=== PATIENT | female | born 1970 | race Caucasian/White ===

== ENCOUNTER 2016-03-14 08:52 | Outpatient (CLI) | payer OTHER | END 2016-03-14 08:53 | disposition home or self-care (01) | DX: Z00.00 Encounter for general adult medical examination without abnormal findings (principal); E55.9 Vitamin D deficiency, unspecified; E78.5 Hyperlipidemia, unspecified ==

== ENCOUNTER 2016-04-13 14:55 | Outpatient (CLI) | payer OTHER | END 2016-04-13 14:56 | disposition home or self-care (01) | DX: N92.0 Excessive and frequent menstruation with regular cycle (principal); R53.83 Other fatigue ==

== ENCOUNTER 2017-11-28 13:22 | Outpatient (CLI) | payer OTHER | END 2017-11-28 13:23 | disposition home or self-care (01) | LOC: LAB.F 13:22 | PROVIDERS: ATTEND Nurse Practitioner Family | DX: R06.02 Shortness of breath (principal) ==

== ENCOUNTER 2017-11-30 08:16 | Outpatient (CLI) | payer OTHER ==
[2017-11-30 09:33] LABS: ALBUMIN 4.1 g/dL (3.2-5.5); ALBUMIN/GLOBULIN RATIO 1.5 (1.0-2.2); BILIRUBIN,TOTAL 1.2 mg/dL (0.2-1.0); CALCIUM 9.3 mg/dL (8.5-10.3); CREATININE 0.7 mg/dL (0.4-1.0); TOTAL PROTEIN 6.9 g/dL (6.7-8.2)
[2017-11-30 09:35] LABS: BASOPHILS % (AUTO) 0.3 %; EOSINOPHILS % (AUTO) 0.7 %; HGB - HEMOGLOBIN 13.9 g/dL (12.0-16.0); LYMPHOCYTES # (AUTO) 1.5 10^3/uL (1.5-3.5); LYMPHOCYTES % (AUTO) 22.6 %; MEAN CORPUSCULAR HEMOGLOBIN 32.5 pg (27.0-31.0); MEAN CORPUSCULAR HGB CONC 34.7 g/dL (32.0-36.0); MEAN CORPUSCULAR VOLUME 93.5 fL (81.0-99.0); MEAN PLATELET VOLUME 11.2 fL (7.9-10.8); MONOCYTES # (AUTO) 0.5 10^3/uL (0.0-1.0); MONOCYTES % (AUTO) 8.1 %; NEUTROPHILS # (AUTO) 4.6 10^3/uL (1.5-6.6); NEUTROPHILS % (AUTO) 68.3 %; PLT - PLATELET COUNT 192 10^3/uL (130-450); RED BLOOD COUNT 4.29 10^6/uL (4.20-5.40); RED CELL DISTRIBUTION WIDTH 12.9 % (12.0-15.0); WHITE BLOOD COUNT 6.7 x10^3/uL (4.8-10.8)
--- NOTE | 2017-11-30 11:04 | XRAY Report ---
Reason: NEW ONSET SHORTNESS OF BREATH, GERD, VIRAL ILLNESS Procedure Date: 11/30/2017 Accession Number: [id number] / [id number] Procedure: XR - Chest 2 View X-Ray CPT Code: 49079 FULL RESULT: EXAM: CHEST RADIOGRAPHY EXAM DATE: 11/30/2017 09:22 AM. CLINICAL HISTORY: Mild chest pain and shortness of breath x5 weeks. COMPARISON: XR CHEST PA AND LAT 10/07/2008 8:08 PM. TECHNIQUE: 2 views. FINDINGS: Lungs/Pleura: Normal volumes. No focal consolidation or evidence of edema. No pleural effusion or pneumothorax. Mediastinum: Normal cardiomediastinal contour. Other: Minimal left convex curvature of the upper thoracic spine. IMPRESSION: No acute cardiopulmonary abnormality. RADIA
== END 2017-11-30 08:17 | disposition home or self-care (01) ==
LOC: DI 08:16
PROVIDERS: ATTEND Nurse Practitioner Family
DX: R06.02 Shortness of breath (principal); I10 Essential (primary) hypertension
CPT/HCPCS: 36415; 71046; 80053; 81599; 85025

== ENCOUNTER 2021-12-14 07:54 | Day surgery (SDC) | payer OTHER ==
[2021-12-14] MEDS ORDERED: LACTATED RINGERS 1,000 ML IV ONE ×3 (08:08→09:58)
[2021-12-14] MEDS ORDERED: PROPOFOL 500 MG/50 ML 500 MG/50 ML VIAL ONE (08:30)
--- NOTE | 2021-12-14 08:52 | ANESTHESIA ---
Pre-Anesthesia VS, & Labs - Diagnosis screening - Procedure colonoscopy Vital Signs: Temp Pulse Resp BP Pulse Ox O2 Flow Rate 36.0 C L 72 17 146/90 H 100 0 12/14/21 08:08 12/14/21 08:08 12/14/21 08:08 12/14/21 08:08 12/14/21 08:08 12/14/21 08:08 Height: 5 ft 8 in Weight (kg): 74 kg Body Mass Index: 24.7 BMI Classification: Normal - NPO >8 hours - Is Patient ?: No Home Medications and Allergies Home Medications: Ambulatory Orders Multivitamin 1 each PO DAILY 12/13/21 Multivitamin 1 each PO DAILY 12/13/21 Allergies/Adverse Reactions: Allergies Allergy/AdvReac Type Severity Reaction Status Date / Time No Known Drug Allergies Allergy Verified 12/14/21 08:14 Anes History & Medical History - Anesthetic History Anesthesia Complications: reports: No previous complications Family history of Anesthesia Complications: Denies Family history of Malignant Hyperthermia: Denies - Medical History Cardiovascular: reports: None Pulmonary: reports: None Gastrointestinal: reports: None Urinary: reports: None Musculoskeletal: reports: None Endocrine/Autoimmune: reports: None Skin: reports: None Psychosocial: reports: Alcohol - Surgical History Gynecologic: reports: Oophrectomy Orthopedic: reports: Other Exam General: Alert, Oriented x3, Cooperative Dental: WNL Mouth Openin Fingerbreadth Neck Mobility: Normal Mallampati classification: I Thyromental Distance: 4-6 cm Respiratory: Lungs clear Cardiovascular: Regular rate Plan Anesthesia Type: Total IV Consent for Procedure(s) Verified and Reviewed: Yes Code Status: Attempt Resuscitation ASA classification: 2-Mild systemic disease Is this case an emergency?: No
[2021-12-14] MEDS ORDERED: LIDOCAINE-PF 2% 10 ML AMP SUBQ ONE (09:34)
[2021-12-14 10:12] VITALS: BP 108/79
--- NOTE | 2021-12-14 11:05 | ANESTHESIA POST OP EVALUATION ---
Anesthesia Post Eval - Post Anesthesia Eval Vitals: Last Vital Signs Temp 36.0 C L 12/14/21 10:03 Pulse 60 12/14/21 10:11 Resp 16 12/14/21 10:11 BP 108/79 12/14/21 10:11 Pulse Ox 100 12/14/21 10:11 O2 Flow Rate 0 12/14/21 08:08 CV Function Including HR & BP: Stable Pain Control: Satisfactory Nausea & Vomiting: Negative Mental Status: Baseline Respiratory Status: Airway Patent Hydration Status: Satisfactory Anesthesia Complications: None
== END 2021-12-14 07:55 | disposition home or self-care (01) ==
LOC: SDS 07:54
PROVIDERS: ATTEND Surgery
DX: Z12.11 Encounter for screening for malignant neoplasm of colon (principal); K64.8 Other hemorrhoids; Z83.71 Family history of colonic polyps; Z87.891 Personal history of nicotine dependence
CPT/HCPCS: 45378; J7120

== ENCOUNTER 2022-11-14 09:54 | Outpatient (CLI) | payer OTHER ==
--- NOTE | 2022-11-15 10:44 | Mammography Report ---
BILATERAL DIGITAL SCREENING MAMMOGRAM 3D/2D WITH EXAGGERATED CC: 11/14/2022 CLINICAL: Routine screening. Comparison is made to exams dated: 09/27/2021 mammogram, 09/16/2019 mammogram, 07/28/2015 mammogram, an d 03/30/2014 mammogram - [facility]. Both breasts are heterogeneously dense, which may obscure small masses (category c / 51-75% glandular tissue). No significant masses, calcifications, or other findings are seen in either breast. IMPRESSION: NEGATIVE There is no mammographic evidence of malignancy. A 1 year screening mammogram is recommended. Based on the Tyrer Cuzick model (a risk assessment model) the patients lifetime risk is 13.0% and he r 10 year risk is 3.2%. According to the ACR, ACS, and NCCN guidelines, an annual breast MRI exam elvin ng with mammogram is recommended if the patients lifetime risk is 20% or greater. This exam was interpreted at Station ID: [id number]. NOTE: For mammograms, a report in lay terms will be sent to the patient. Approximately 15% of breast malignancies will not be visualized mammographically. In the management of a palpable breast mass, a negative mammogram must not discourage biopsy of a clinically suspicious lesion. Electronically Signed By: Alicia kapoor/mehrdad:11/14/2022 17:25:08 letter sent: No_Letter ACR BI-RADS Category 1: Negative 3341F PARENCHYMAL PATTERN: (D) - The breast(s) demonstrate(s) heterogeneously dense fibroglandular freddy cruz. BI-RADS CATEGORY: (1) - 1 Mammogram [id number] 1 year screening LATERALITY: (B)
== END 2022-11-14 09:55 | disposition home or self-care (01) ==
LOC: DI.S 09:54
PROVIDERS: ATTEND Nurse Practitioner Family
DX: Z12.31 Encounter for screening mammogram for malignant neoplasm of breast (principal); R92.333 Mammographic heterogeneous density, bilateral breasts

== ENCOUNTER 2022-11-22 15:45 | Outpatient (CLI) | payer OTHER ==
--- NOTE | 2022-11-22 16:26 | Sleep Patient Instructions ---
Sleep Center Visit Summary - Patient Visit Information Reason for Visit: Initial consult for evaluation of sleep disordered breathing and other sleep issues. - Patient Instructions Instructions Attached: Sleep Study, Sleep Study Home Monitor Additional Instructions: You will be completing a sleep study, either an in-lab polysomnography (PSG) or home sleep study (HST). You will follow-up in the sleep care office after the sleep study is completed to hear the results and talk about therapy, if needed. You will be called by our office staff to schedule this appointment, but you may contact us with any questions. - Clinic Information Contact: [facility] [address] [place] [id number] [email or web address] T: [phone]
--- NOTE | 2022-11-22 16:33 | SLEEP CARE CONSULTATION ---
Information from patient questionnaire entered by Reny Harris. I have reviewed and concur with the information entered by Reny Harris. This document represents the service I personally performed and the decisions made by me, Brook Giordano ARNP. History of Present Illness Service Date and Time: 11/22/2022 1545 Reason for Visit: New patient Chief Complaint: reports: Insomnia, Unrefreshed sleep, Observed pauses in breathing, Frequent awakenings at night Date of Onset: as long as she can remember Usual bedtime: 10PM Time it takes to fall asleep: MOST NIGHTS 20MIN SOME NIGHTS HRS Snores at night: No (not excessively snoring) Observed to quit breathing while asleep: Yes Sleeps alone due to snoring: No Number of times waking at night: 4 Reasons for waking at night: reports: Other (UNKNOWN). denies: Choking, Snoring, Gasping for air Toss, Turn, or Twitch while sleeping: No Recalls having dreams: No Usually gets out of bed at: 630AM; 7-8 AM Feels refreshed in the morning: No Morning headache: Yes (1-2 times a week; will 4 hrs sleep; gone after coffee) Sleepy or fatigued during the day: Yes Ever fallen asleep while driving: No Takes day naps: No (only unintentional naps) Dreams during day naps: No Prior sleep studies: No Additional HPI information: I had the pleasure of seeing ESTEFANIA ROD today regarding the possibility of her having a sleep disorder. Her current complaints are insomnia, unrefreshed sleep, observed pauses in breathing and frequent night awakenings. She comes in stating that she has always had a problem with sleep and feeling rested throughout her life. She states sometimes she has trouble falling asleep and other times she is able to go to sleep within a good amount of time. She has noted that she will wake up at certain times at night regularly. She will wake up at 1 AM and then 4 AM almost every night. She states she is tired all the time and she cannot ever remember feeling like she is rested in the morning. She states her has told her that she will wake up with some "irregular breathing "but does not describe it as snoring. He says she is stopping breathing when sleeping. She states she will notice that she is falling asleep and then will jerk awake, almost like she is fighting falling asleep. She states that she does not take naps, except for nights she is watching TV and will fall asleep unintentionally for short periods of time. 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 Patient is and lives in [place]. Have you smoked in the past 12 months: No Alcohol use: Yes Alcohol amount and frequency: 1-2 DRINKS 3-4X WEEK Caffeine use: Yes Caffeine amount and frequency: 2 CUPS A DAY Family History Family history of sleep disordered breathing: Yes Family Hx Sleep Apnea: Mother: Snoring, Sleep apnea - Untreated, Sibling: Snoring Allergies and Home Medications Known drug allergies: No Drug allergies reviewed: Yes Home medication list reviewed: Yes Allergy and home medication list: Allergies No Known Drug Allergies Allergy (Verified 11/21/22 13:22) Home Medications Medication Instructions Recorded Confirmed Last Taken Type Calcium Carbonate [Calcium] See Rx Instructions .ROUTE .COMPLEX 11/22/22 11/22/22 Unknown History Cbd Oil See Rx Instructions .ROUTE .COMPLEX 11/22/22 Unknown History Cholecalciferol (Vitamin D3) See Rx Instructions .ROUTE .COMPLEX 11/22/22 11/22/22 Unknown History [Vitamin D3] Magnesium See Rx Instructions .ROUTE .COMPLEX 11/22/22 11/22/22 Unknown History Melatonin/Pyridoxine [Melatonin 5 See Rx Instructions .ROUTE .COMPLEX 11/22/22 11/22/22 Unknown History mg Tablet] [place] 3,6/Dha/Aisha/Schizo/Mort See Rx Instructions .ROUTE .COMPLEX 11/22/22 11/22/22 Unknown History [Enfamil Dha-Aisha 110 mg/ml Drop] Review of Systems Weight gain over past 5 years: 15 Cardiovascular: denies: high blood pressure Gastrointestinal: denies: heartburn Neurological: denies: headaches Psychiatric: denies: anxiety, depression Ear/Nose/Throat: denies: tonsillectomy Endocrine: reports: sluggishness, too hot or cold Physical Exam Vital signs obtained and entered by: RENY Simmons MA Blood Pressure: 120/60 (LEFT ARM) Cuff size: regular Heart Rate: 56 O2 Saturation: 98 Height: 5 ft 8 in Weight: 165 lb 9.6 oz Body Mass Index: 25.2 BMI Classification: Overweight Neck circumference: 14 Mouth and throat: narrow oropharynx Soft palate: long Hard palate: normal Uvula: normal Uvula visualization: 25% Mallampati Class III Tongue: enlarged in size with teeth doss on lateral edges Tonsils: 1+ Neck: normal w/o lymphadenopathy or thyromegaly Heart: regular rate and rhythm Lungs: clear bilaterally Impression and Plan 1. Suspected Obstructive Sleep Apnea-Hypopnea Syndrome, as suggested by a history of irregular snoring, observed cessation of breath while asleep, morning headache, frequent awakening during the night and unrefreshed sleep. Narrow oropharynx and obesity are common predisposing factors for obstructive sleep apnea-hypopnea syndrome. I recommend proceeding to polysomnography to confirm the diagnosis and to assess severity. If the patient has significant sleep disordered breathing, a manual CPAP titration study will also be performed to find the optimal treatment pressure. I informed the patient of what the sleep studies involve and after some discussion, obtained agreement to proceed. The pathophysiology of obstructive sleep apnea-hypopnea syndrome was discussed with the patient and health risks of cardiovascular and cerebrovascular disease if not treated. Risks of drowsy driving discussed in detail and patient advised to avoid long distance driving and to side puller at the first sign of drowsiness. Patient agreed to plan. * Schedule polysomnography. * Avoid long distance driving or driving when feeling sleepy. * Avoid alcohol, sedative and muscle relaxant around bedtime. * Attempt to lose weight. * Review instructions provided by trained office staff on how to prepare for the sleep study. * Return for follow-up after sleep study completed. Visit Type: In Office Time Spent with Patient (minutes): 37 Provider Statement: I spent 100% of the Face to Face Visit with the patient with greater than 50% spent counseling the patient and coordination of care.
[2022-11-22 16:42] VITALS: BP 120/60; O2SAT 98
== END 2022-11-22 15:46 | disposition home or self-care (01) ==
LOC: SC 15:45
PROVIDERS: ATTEND Nurse Practitioner Family
DX: G47.10 Hypersomnia, unspecified (principal); G47.00 Insomnia, unspecified; R06.81 Apnea, not elsewhere classified; G47.8 Other sleep disorders; R06.83 Snoring; R51.9 Headache, unspecified; E66.3 Overweight; Z68.25 Body mass index [BMI] 25.0-25.9, adult
CPT/HCPCS: 99203; 99212

== ENCOUNTER 2023-01-04 19:32 | Outpatient (CLI) | payer OTHER | END 2023-01-04 19:33 | disposition home or self-care (01) | LOC: SC 19:32 | PROVIDERS: ATTEND Nurse Practitioner Family | DX: G47.8 Other sleep disorders (principal); R53.83 Other fatigue; R51.9 Headache, unspecified; R06.83 Snoring; R06.81 Apnea, not elsewhere classified | CPT/HCPCS: 95810 ==

== ENCOUNTER 2023-01-11 16:32 | Outpatient (CLI) | payer OTHER ==
--- NOTE | 2023-01-11 16:22 | SLEEP CARE CONSULTATION ---
Information from patient questionnaire entered by Reny Harris. I have reviewed and concur with the information entered by Reny Harris. This document represents the service I personally performed and the decisions made by , Brook Giordano ARNP. History of Present Illness Service Date and Time: 01/11/2023 1600 Initial [place] Sleepiness Scale score: 7 (10/29/22) Current [place] Sleepiness Scale score: 8 (01/11/23) Additional HPI information: ESTEFANIA ROD returns via video appointment for follow up and results of the recently performed polysomnography. The patient was informed of the following findings: No significant sleep disordered breathing with an average AHI of 0.2 and donovan oxygen saturation of 92%. I explained the pathophysiology behind obstructive sleep apnea. Patient does not have sleep apnea and was advised how weight gain could increase the risk of developing sleep apnea in the future. Patient has light to loud snoring. Snoring can also be treated with an oral appliance from a dentist. Advised to check insurance coverage. In addition, an ENT evaluation can be do to see if other treatment is indicated. Patient counseled not drink alcohol less than 4 hours before bedtime as it can increase snoring and apnea. Patient was cautioned about risks of drowsy driving until sleepiness symptoms resolve. Patient denies drowsy driving. Sleep Study - Results Type of Sleep Study: Polysomnography (COMPLETED 01/04/23) Prior sleep studies: No Polysomnography/Home Sleep Study results: IMPRESSION: The quality of the study is good. The patient had minimally reduced sleep efficiency. The sleep architecture was normal. Respiratory monitoring showed no significant sleep disordered breathing (AHI = 0.2) or hypoxia (donovan oxygen saturation of 92%). The patient slept mostly supine (supine AHI = 0.0; non-supine = 0.31). Snore was light to loud in intensity. There was no significant periodic leg movement of sleep. Cardiac rhythm was normal sinus rhythm without significant arrhythmia. No abnormal behavior (parasomnia) observed during the night. Allergies and Home Medications Known drug allergies: No Drug allergies reviewed: Yes Home medication list reviewed: Yes (no changes) Allergy and home medication list: Allergies No Known Drug Allergies Allergy Review of Systems Review of systems same as previous: Yes (NO CHANGE) Physical Exam Vital signs obtained and entered by: RENY Simmons MA Height: 5 ft 9 in (PER PT) Weight: 165 lb (PER PT) Body Mass Index: 24.3 BMI Classification: Normal Impression and Plan 1. Snoring but no significant sleep disordered breathing. Patient advised that often weight loss will reduce snoring as well as apnea risk. An oral appliance can also be used for snoring. This would require a dental consultation. Patient cautioned not to use other online appliances as can cause bite issues. Patient is advised to check if insurance will cover. An ENT consult can also be helpful to determine if any other treatment is an option. 2. Insomnia, unspecified. Insomnia is generally caused by an irregular sleep schedule, spending too much time in bed, napping, caffeine, electronics, lack of a relaxing bedtime ritual and clock watching. We reviewed sleep hygiene and ways to try to improve her sleep. She will look at ways to improve her sleep overall. * Maintain a healthy weight * Avoid alcohol consumption near bedtime * Return as needed for follow up. Counseling Topics: Weight control Visit Type: Telehealth Video Video Type: Doximity Patient Location: Home Location of Provider: Office Patient agrees and consents to this telehealth visit type: Yes Patient agrees to have their insurance billed: Yes Time Spent with Patient (minutes): 16 Provider Statement: I spent 100% of the Telehealth Video Call with the patient with greater than 50% spent counseling the patient and coordination of care.
== END 2023-01-11 16:33 | disposition home or self-care (01) ==
LOC: SC 16:32
PROVIDERS: ATTEND Nurse Practitioner Family
DX: R06.83 Snoring (principal); G47.00 Insomnia, unspecified